=== PATIENT | female | born 1995 | race Asian ===

== ENCOUNTER 2017-10-18 17:42 | Emergency (ER) | payer OTHER ==
[2017-10-18 17:58] VITALS: BP 102/64
--- NOTE | 2017-10-18 20:26 | UC ---
Agapito Gaxiola Natalie, scribed for Singh Briceno MD on 10/18/17 at 1907 . Ear Complaint HPI - HPI Summary HPI Summary: The patient is a 22 y/o F presenting to [facility] c/o of right ear pain starting three days ago. She states that she felt like there was a round object rolling around in her ear, so she stuck a tissue in her ear, which is when the pain started. The pain is rated 3/10. She also c/o a sore throat that started prior to the ear pain and loss of hearing in the right ear. - History of Current Complaint Chief Complaint: UCEar Stated Complaint: EAR PAIN Time Seen by Provider: 10/18/17 18:00 Hx Obtained From: Patient Hx Last Menstrual Period: 09/24/2017 Onset/Duration: Sudden Onset, Lasting Days - starting three days ago, Still Present Severity Initially: Mild Severity Currently: Mild Pain Intensity: 3 Pain Scale Used: 0-10 Numeric Associated Signs/Symptoms: Positive: Hearing Loss - Allergies/Home Medications Allergies/Adverse Reactions: Allergies Allergy/AdvReac Type Severity Reaction Status Date / Time Penicillins Allergy Hives Verified 10/18/17 17:57 sulfamethoxazole Allergy Hives Verified 10/18/17 17:58 [From Bactrim] trimethoprim [From Bactrim] Allergy Hives Verified 10/18/17 17:58 Home Medications: Home Medications Multivitamin [[id number]] 1 each PO 10/18/17 [History] PMH/Surg Hx/FS Hx/Imm Hx Previously Healthy: Yes - Surgical History Surgical History: None - Family History Known Family History: Negative: Cardiac Disease, Hypertension, Diabetes - Social History Alcohol Use: None Substance Use Type: None Smoking Status (MU): Never Smoked Tobacco Review of Systems Constitutional: Other - NEGATIVE: fever ENT: Sore Throat, Ear Ache - right All Other Systems Reviewed And Are Negative: Yes Physical Exam Triage Information Reviewed: Yes Appearance: Well-Appearing, No Pain Distress Vital Signs: Initial Vital Signs Temp 99.4 F 10/18/17 17:52 Pulse 81 10/18/17 17:52 Resp 16 10/18/17 17:52 BP 102/64 10/18/17 17:52 Pulse Ox 99 10/18/17 17:52 Vital Signs Reviewed: Yes Eyes: Positive: Other: - EOMI, LYLE ENT: Positive: Other - right ear canal cerumen impaction, nontender to palpation of tragus or traction of pinnae Neck: Positive: Supple, Nontender Respiratory: Positive: Other: - CTA, breath sounds present Cardiovascular: Positive: RRR Abdomen Description: Positive: Nontender, Soft Bowel Sounds: Positive: Present Musculoskeletal Exam: Normal Musculoskeletal: Positive: Strength Intact, ROM Intact Neurological: Positive: Other: - normal, sensory/mood appropriate, A&O x3 Psychological: Positive: Other: - affect/mood appropriate Skin: Positive: Other - warm, color reflects adequate perfusion, dry Ear Complaint Course/Dx - Course Course Of Treatment: Medications reviewed. Allergies noted. RT EAR CERUMEN GONE AFTER IRRIGATION. NO SIGN OF OE. - Differential Dx/Diagnosis Provider Diagnoses: RIGHT EAR PAIN WITH CERUMEN IMPACTION Discharge - Sign-Out/Discharge Documenting (check all that apply): Discharge - Discharge Plan Condition: Stable Disposition: HOME Discharge Disposition Comment: The pt will be discharged home. Patient Education Materials: Cerumen Impaction (ED), Earache (ED) Referrals: [facility] [Provider Group] Additional Instructions: FOLLOW UP WITH YOUR DOCTOR IF NOT COMPLETELY IMPROVED. GET RECHECKED FOR ANY WORSENING OF YOUR CONDITION OR QUESTIONS OR CONCERNS. - Billing Disposition and Condition Condition: STABLE Disposition: HOME The documentation as recorded by the Agapito benjamin Natalie accurately reflects the service I personally performed and the decisions made by me, Singh Briceno MD.
== END 2017-10-18 18:40 | disposition home or self-care (01) ==
LOC: UCEAST 17:42
DX: H92.01 Otalgia, right ear (principal); H61.21 Impacted cerumen, right ear; Z88.1 Allergy status to other antibiotic agents; Z88.0 Allergy status to penicillin
CPT/HCPCS: 99212; G0463